=== PATIENT | male | born 1930 | race Caucasian/White ===

== ENCOUNTER 2016-08-28 02:14 | Inpatient (IN) | payer MEDICARE ==
[~2016-08-28 02:14] MED LIST: ASPIRIN325 MG PO; AVAPRO300 MG PO; DITROPAN XL10 M3 PO; DITROPAN XL5 M3 PO; FINASTERIDE5 M2 PO; GLUCOSAMINE &1 EAC1 PO; IPRATROPIUM BRO30 M1; LEVAQUIN750 M1 PO; LISINOPRIL-HCT1 EAC1 PO; MECLIZINE HCL25 M3 PO; METAMUCIL425 G1 PO; NEURONTIN100 M1 PO; NORCO 5/325 TAB1 TAB PO; OMEPRAZOLE20 MG PO; PROTONIX40 M2 PO; REQUIP0.25 MG PO; REQUIP0.5 MG PO; REQUIP4 M1 PO; SENNA LAXATIVE PO; STOOL SOFTENER1 EAC4 PO; TRAMADOL HCL50 M2 PO; TRAZODONE HCL100 M1 PO; VESICARE10 MG PO; VITAMIN C500 M4 PO; VITAMIN D32000 UNI3 PO; ZOFRAN ODT4 MG PO
[2016-08-28 03:09] LABS: BASO % 0.4 % (0-2); EOS % 2.2 % (0-7); EOSINOPHIL ABSOLUTE COUNT 0.1 tho/cmm (0.0-0.7); HCT-HEMATOCRIT 37.3 % (36.0-53.5); HGB-HEMOGLOBIN 12.9 gm/dl (13.5-17.0); IMMATURE GRANULOCYTES ABSOLUTE 0.04 tho/cmm (0-0.03); IMMATURE GRANULOCYTES PERCENT 0.7 % (0-0.3); LYMPH % 32.9 % (20-45); LYMPH ABSOLUTE COUNT 1.8 tho/cmm (0.8-4.5); MCH (MEAN CORPUSCULAR HGB) 31.4 pg (28.0-32.0); MCHC MEAN CORPUSCULAR HGB CONC 34.6 % (32.0-36.0); MCV (MEAN CELL VOLUME) 90.8 fl (82.0-96.0); MEAN PLATELET VOLUME 9.5 cmc (9.4-12.4); MONO % 14.9 % (0-12); MONOCYTE ABSOLUTE COUNT 0.8 tho/cmm (0.0-1.2); NEUTROPHIL ABSOLUTE COUNT 2.7 tho/cmm (1.6-8.0); NEUTROPHIL-AUTOMATED 2.7 tho/cmm (1.6-8.0); NEUTROPHILS % 48.9 % (40-80); PLATELET COUNT 150 tho/cmm (150-450); RED BLOOD COUNT 4.11 mil/cmm (4.40-5.70); RED CELL DISTRIBUTION WIDTH 12.6 % (12.4-16.4); WHITE BLOOD COUNT 5.4 tho/cmm (4.0-10.0)
[2016-08-28 03:20] LABS: PROTHROMBIN TIME 11.9 SECONDS (9.0-13.6)
[2016-08-28 03:26] LABS: ALB/GLOB RATIO 0.8 (0.8-2.0); ALBUMIN 3.3 g/dl (3.5-5.0); ALKALINE PHOSPHATASE 54 U/L (33-138); ALT/SGPT 26 U/L (12-78); ANION GAP 12 mmol/L (0-20); AST/SGOT 20 U/L (10-40); BILIRUBIN,TOTAL 0.4 mg/dl (0.0-1.5); BLOOD UREA NITROGEN 17 mg/dl (6-24); CALCIUM 8.4 mg/dl (8.5-10.5); CARBON DIOXIDE-VENOUS 27 mmol/L (22-32); CHLORIDE 104 mmol/l (96-110); CREATININE 1.09 mg/dl (0.60-1.30); GLUCOSE 114 mg/dL (70-110); POTASSIUM 3.8 mmol/L (3.7-5.1); SODIUM 139 mmol/L (135-145); eGFR VALUE FOR BLACK 71 mL/Min
[2016-08-28 04:44] LABS: URINE BILIRUBIN NEGATIVE (NEG); URINE BLOOD NEGATIVE (NEG); URINE GLUCOSE (UA) NEGATIVE (NEG); URINE KETONE NEGATIVE (NEG); URINE LEUKOCYTE ESTERASE POSITIVE (NEG); URINE NITRITE NEGATIVE (NEG); URINE PROTEIN SMALL (NEG)
[2016-08-28 04:45] LABS: URINE APPEARANCE HAZY; URINE COLOR YELLOW
[2016-08-28 04:51] LABS: URINE WBC 15-20 /[HPF] (0-5)
[2016-08-28 04:52] LABS: URINE BACTERIA 3+; URINE EPITHELIAL CELLS RARE /[HPF] (0-10); URINE RBC 0 /[HPF] (0-5)
[2016-08-28] MEDS ORDERED: B COMPLETE1 EACH PO (05:41)
[2016-08-28] MEDS ORDERED: ARTIFICIAL TEAR15 M8 OP (05:41)
[2016-08-28] MEDS ORDERED: OSTEO BI-FLEX1 EAC5 PO (05:41)
[2016-08-28] MEDS ORDERED: VIBRAMYCIN100 M1 PO (05:42)
[2016-08-28] MEDS ORDERED: PRINIVIL10 M1 PO (05:42)
[2016-08-28] MEDS ORDERED: CELEXA40 M2 PO (05:42)
[2016-08-28] MEDS ORDERED: LUBRICANT EYE3.5 G3 OP (05:43)
[2016-08-28] MEDS ORDERED: TRAZODONE HCL100 M1 PO (05:44)
[2016-08-28] MEDS ORDERED: TOLTERODINE TART2 M3 PO (05:44)
[2016-08-28] MEDS ORDERED: MIRALAX17 G2 PO (05:49)
[2016-08-28] MEDS ORDERED: [UNRECOGNIZED DRUG - OTHER] TP (14:37)
[2016-08-28] MEDS ORDERED: CODEINE-GUAIFE120 M1 PO (14:38)
[2016-08-29] MEDS ORDERED: TROSPIUM CHLORI20 M1 PO (14:45)
[2016-08-30] MEDS ORDERED: MIDODRINE HCL5 M1 PO (14:34)
[2016-08-30] MEDS ORDERED: CYCLOBENZAPRINE5 M1 PO (14:35)
[2016-08-31] MEDS ORDERED: METOPROLOL TART25 M1 PO (14:37)
[2016-09-01 06:33] LABS: CKMB 6.9 ng/ml (<3.6)
[2016-09-01 09:33] LABS: CKMB 6.9 ng/ml (<3.6)
[2016-09-01 13:23] LABS: BASO % 0.1 % (0-2); EOS % 1.1 % (0-7); EOSINOPHIL ABSOLUTE COUNT 0.1 tho/cmm (0.0-0.7); HCT-HEMATOCRIT 43.1 % (36.0-53.5); HGB-HEMOGLOBIN 15.1 gm/dl (13.5-17.0); IMMATURE GRANULOCYTES ABSOLUTE 0.03 tho/cmm (0-0.03); IMMATURE GRANULOCYTES PERCENT 0.4 % (0-0.3); LYMPH % 21.4 % (20-45); LYMPH ABSOLUTE COUNT 1.5 tho/cmm (0.8-4.5); MCH (MEAN CORPUSCULAR HGB) 31.6 pg (28.0-32.0); MCV (MEAN CELL VOLUME) 90.2 fl (82.0-96.0); MEAN PLATELET VOLUME 10.1 cmc (9.4-12.4); MONO % 10.6 % (0-12); MONOCYTE ABSOLUTE COUNT 0.8 tho/cmm (0.0-1.2); NEUTROPHIL ABSOLUTE COUNT 4.8 tho/cmm (1.6-8.0); NEUTROPHIL-AUTOMATED 4.8 tho/cmm (1.6-8.0); NEUTROPHILS % 66.4 % (40-80); PLATELET COUNT 173 tho/cmm (150-450); RED BLOOD COUNT 4.78 mil/cmm (4.40-5.70); RED CELL DISTRIBUTION WIDTH 12.7 % (12.4-16.4); WHITE BLOOD COUNT 7.2 tho/cmm (4.0-10.0)
[2016-09-01 13:33] LABS: ANION GAP 11 mmol/L (0-20); BLOOD UREA NITROGEN 14 mg/dl (6-24); CALCIUM 8.8 mg/dl (8.5-10.5); CARBON DIOXIDE-VENOUS 28 mmol/L (22-32); CHLORIDE 104 mmol/l (96-110); CREATININE 0.88 mg/dl (0.60-1.30); GLUCOSE 129 mg/dL (70-110); SODIUM 139 mmol/L (135-145); eGFR VALUE FOR BLACK >90 mL/Min
[2016-09-01] MEDS ORDERED: CEFTIN250 MG/51 PO (14:31)
[2016-09-01] MEDS ORDERED: ASPIRIN EC81 MG PO (14:37)
[2016-09-01] MEDS ORDERED: OXYCODONE HCL5 M1 PO (14:38)
[2016-09-01] MEDS ORDERED: ULTRAM50 M1 PO (14:40)
[2016-09-02 06:40] LABS: HCT-HEMATOCRIT 42.3 % (36.0-53.5); HGB-HEMOGLOBIN 14.9 gm/dl (13.5-17.0); MCH (MEAN CORPUSCULAR HGB) 31.8 pg (28.0-32.0); MCHC MEAN CORPUSCULAR HGB CONC 35.2 % (32.0-36.0); MCV (MEAN CELL VOLUME) 90.4 fl (82.0-96.0); MEAN PLATELET VOLUME 11.4 cmc (9.4-12.4); NEUTROPHIL-AUTOMATED 3.5 tho/cmm (1.6-8.0); RED BLOOD COUNT 4.68 mil/cmm (4.40-5.70); RED CELL DISTRIBUTION WIDTH 12.8 % (12.4-16.4); WHITE BLOOD COUNT 6.6 tho/cmm (4.0-10.0)
[2016-09-02 06:41] LABS: BASO % 1.5 % (0-2); BASO ABSOLUTE COUNT 0.1 tho/cmm (0.0-0.2); EOS % 3.4 % (0-7); EOSINOPHIL ABSOLUTE COUNT 0.2 tho/cmm (0.0-0.7); IMMATURE GRANULOCYTES ABSOLUTE 0.04 tho/cmm (0-0.03); IMMATURE GRANULOCYTES PERCENT 0.6 % (0-0.3); LYMPH % 24.4 % (20-45); LYMPH ABSOLUTE COUNT 1.6 tho/cmm (0.8-4.5); MONO % 16.5 % (0-12); MONOCYTE ABSOLUTE COUNT 1.1 tho/cmm (0.0-1.2); NEUTROPHIL ABSOLUTE COUNT 3.5 tho/cmm (1.6-8.0); NEUTROPHILS % 53.6 % (40-80)
[2016-09-02 08:32] LABS: PLATELET COUNT 211 tho/cmm (150-450)
[2016-09-03 06:52] LABS: BLOOD UREA NITROGEN 15 mg/dl (6-24); CREATININE 0.82 mg/dl (0.60-1.30); eGFR VALUE FOR BLACK >90 mL/Min
== END 2016-09-03 14:50 | DRG 287 ==
LOC: EDMED 02:14 → EMR2 06:16 → 5EB 11:30
PROVIDERS: Hospitalist; Internal Medicine Cardiovascular Disease; Physician Assistant; Physician Assistant Medical; ADMIT Internal Medicine
PROC: 4A023N7 Measurement of Cardiac Sampling and Pressure, Left Heart, Percutaneous Approach (ICD-10-PCS; principal; 2016-09-02)
PROC: B2111ZZ Fluoroscopy of Multiple Coronary Arteries using Low Osmolar Contrast (ICD-10-PCS; 2016-09-02)
DX: R55 Syncope and collapse (principal); S12.100A Unspecified displaced fracture of second cervical vertebra, initial encounter for closed fracture; I47.2 Ventricular tachycardia; N39.0 Urinary tract infection, site not specified; R00.1 Bradycardia, unspecified; I45.81 Long QT syndrome; I10 Essential (primary) hypertension; B96.20 Unspecified Escherichia coli [E. coli] as the cause of diseases classified elsewhere; E11.9 Type 2 diabetes mellitus without complications; I95.1 Orthostatic hypotension; G25.81 Restless legs syndrome; Z86.73 Personal history of transient ischemic attack (TIA), and cerebral infarction without residual deficits; Y92.019 Unspecified place in single-family (private) house as the place of occurrence of the external cause; W19.XXXA Unspecified fall, initial encounter; F41.9 Anxiety disorder, unspecified; F32.9 Major depressive disorder, single episode, unspecified; K21.9 Gastro-esophageal reflux disease without esophagitis; N40.1 Benign prostatic hyperplasia with lower urinary tract symptoms; N39.498 Other specified urinary incontinence; I44.0 Atrioventricular block, first degree; I35.1 Nonrheumatic aortic (valve) insufficiency; Z88.8 Allergy status to other drugs, medicaments and biological substances; I25.10 Atherosclerotic heart disease of native coronary artery without angina pectoris; R07.9 Chest pain, unspecified; R79.89 Other specified abnormal findings of blood chemistry; Z79.82 Long term (current) use of aspirin; Z79.02 Long term (current) use of antithrombotics/antiplatelets; M62.838 Other muscle spasm
CPT/HCPCS: A9500; C1725; C1760; C1769; C1874; C1894; C8929; J0696; J1644; J1650; J2060; J2250; J2785; J3010; J7050; Q9967